=== PATIENT | female | born 1980 | race Caucasian/White ===

== ENCOUNTER → 2016-06-27 | Outpatient (CLI) | payer BC ==
[~2016-06-27] VITALS: Ht 167.6 cm; Wt 63.5 kg
[~2016-06-27] MED LIST: BIRTH CONTORL PO; GADOBUTROL 7.5 MMOL/7.5 ML (GADAVIST) VIAL IV ONE; IOHEXOL 300 MG/ML 50 ML (OMNIPAQUE 300) VIAL IV ONE; KETO10TA77 PO; KETO75CA PO
[2016-06-27 11:15] VITALS: BP 120/64
--- NOTE | 2016-06-27 12:15 | Diagnostic Imaging Report ---
EXAMINATION: Fluoroscopic guided joint injection/arthrogram- right. INDICATION: Right shoulder pain, request for MR arthrogram of the shoulder is submitted. Fluoroscopy time: 16.2 CONSENT: Informed consent was obtained from the patient. The risks, benefits, potential complications and alternatives were reviewed and all questions answered to the patient's satisfaction. PROCEDURE: After sterile preparation and draping, 1% lidocaine was utilized for local anesthesia. A 22 spinal needle is introduced into the glenohumeral joint under fluoroscopic guidance. After confirmation of proper positioning with intra-articular injection of, 10 ml of 1:150 concentration of Gadavist in normal saline is injected the into the joint. The patient tolerated the procedure well with no immediate complications. FINDINGS: Arthrogram demonstrates Normal distribution of contrast in the joint with no filling of the subacromial subdeltoid bursa seen. IMPRESSION: Successful fluoroscopic guided injection of diluted gadolinium into the right shoulder . MR arthrogram to follow. Dictated by: Dictated on workstation # [id number]
--- NOTE | 2016-06-27 12:54 | Diagnostic Imaging Report ---
EXAMINATION: Multiplanar, multisequence MRI of the right shoulder performed with intra-articular contrast. INDICATION: Right shoulder pain. FINDINGS: There is no os acromiale or Hill-Sachs deformity. The acromioclavicular joint demonstrates no significant degenerative changes or osteophyte formation. The long head biceps tendon is within its groove. The subscapular tendon appears intact. The supraspinatus and infraspinatus tendons demonstrate mild bursal side T2 hyperintense signal along the distal tendon suggestive of low-grade partial tear best seen on T2 weighted fat-sat oblique coronal images. No high-grade or retracted tear. The glenoid labrum demonstrates mild fraying of the undersurface of the superior labrum at the biceps anchor level. No displaced or full-thickness tear is seen. This is best seen on oblique coronal image 8. The bone marrow signal is within normal limits. There is no abnormal filling of the subacromial subdeltoid bursa with contrast which normally distends the glenohumeral joint. The muscle bulk and signal around the shoulder is normal. IMPRESSION: 1. There is a suggestion of distal supraspinatus and infraspinatus tendons bursal side low-grade partial tear. 2. Mild fraying of the undersurface of the superior labrum at the biceps anchor level with no full-thickness tear demonstrated. Dictated by: Dictated on workstation # [id number]
== END ==
LOC: RAD 10:34
PROVIDERS: ATTEND Orthopaedic Surgery
DX: S43.431A Superior glenoid labrum lesion of right shoulder, initial encounter (principal)
CPT/HCPCS: 23350; 73040; 73222

== ENCOUNTER → 2018-02-21 | Outpatient (CLI) | payer BC ==
[~2018-02-21] MED LIST changes: -GADOBUTROL 7.5 MMOL/7.5 ML (GADAVIST) VIAL IV ONE; -IOHEXOL 300 MG/ML 50 ML (OMNIPAQUE 300) VIAL IV ONE
== END ==
LOC: CARD 12:53
PROVIDERS: ATTEND Internal Medicine Cardiovascular Disease
DX: I47.1 Supraventricular tachycardia (principal); R00.1 Bradycardia, unspecified; R42 Dizziness and giddiness; N20.0 Calculus of kidney; I07.1 Rheumatic tricuspid insufficiency
CPT/HCPCS: 93306

== ENCOUNTER 2018-02-23 08:58 | Outpatient (RCR) | payer BC | END 2018-05-24 | disposition home or self-care (01) | LOC: CARD 08:58 | PROVIDERS: ATTEND Internal Medicine Cardiovascular Disease | DX: I47.1 Supraventricular tachycardia (principal); R00.1 Bradycardia, unspecified; R42 Dizziness and giddiness; N20.0 Calculus of kidney | CPT/HCPCS: 93225; 93226 ==

== ENCOUNTER → 2019-07-07 | Outpatient (CLI) | payer BC | LOC: LAB 13:06 | PROVIDERS: ATTEND Urology | DX: Z87.442 Personal history of urinary calculi (principal) | CPT/HCPCS: 36415; 82140; 82340; 82507; 82570; 83735; 83945; 83986; 84105; 84133; 84300; 84392; 84560 ==

== ENCOUNTER → 2019-12-12 | Outpatient (CLI) | payer BC ==
--- NOTE | 2019-12-12 14:01 | Diagnostic Imaging Report ---
INDICATION: Palpable lump left breast. Comparison is made with prior mammogram from 03/04/2015 and 02/01/2011. 2-D and 3-D bilateral diagnostic mammography was performed with CAD. BB markers were placed at the areas of palpable abnormality in the upper and outer left breast. Both breasts show marked frontal heterogeneity and increased density, limiting the sensitivity of mammography. There appears to be a circumscribed density just deep to the BB marker in the upper outer left breast, likely a cyst. There are circumscribed densities in the medial and lateral aspect of the right breast on the CC view at posterior depth, likely cysts. There is also circumscribed density near the chest wall of the right breast at the nipple line on MLO view. This likely represents a cyst as well. No suspicious microcalcifications are seen. IMPRESSION: BI-RADS 0 Bilateral symmetric densities, likely cysts. Further evaluation with ultrasound is recommended and will be performed today. ACR BI-RADS Category 0: Incomplete. (Needs additional imaging evaluation). Result letter will be mailed to the patient. Note: At least 10% of breast cancer is not imaged by mammography. Dictated by: Dictated on workstation # [id number]
--- NOTE | 2019-12-12 15:48 | Diagnostic Imaging Report ---
INDICATION: Breast lumps and breast densities. COMPARISON: Correlation is made with diagnostic mammogram from earlier the same day. FINDINGS: There is a large cyst at the 1:00 location of the left breast, 7 cm from the nipple, measuring 2.0 x 1.3 x 1.8 cm. This likely accounts for the palpable abnormality. There is also a small cyst at the 3:00 location of the left breast. Numerous cysts in the right breast are noted. Cysts at the 9:00 location, 7-9 cm from the nipple are noted, largest measuring 1.9 x 0.9 x 1.4 cm. 2nd cyst adjacent to this measures 1.4 x 1.0 x 1.3 cm. A cluster of cysts versus septated cysts at the 10:00 location 3-5 cm from the nipple are noted, measuring 1.6 x 1.1 x 1.7 cm. 2nd cyst 2:00 o'clock location, 2 cm from the nipple is noted, measuring 1.8 x 0.8 x 1.7 cm. IMPRESSION: Multiple bilateral breast cysts. Cysts at the 1:00 location in the left breast, 7 cm from the nipple, accounts for the palpable abnormality. There is a complex cyst in the right breast at the 10:00 location. Patient may return to routine annual screening mammography. ACR BI-RADS Category 2: Benign findings. Result letter will be mailed to the patient. Note: At least 10% of breast cancer is not imaged by mammography. Dictated by: Dictated on workstation # [id number]
== END ==
LOC: RAD 13:45
PROVIDERS: ATTEND Family Medicine
DX: N60.01 Solitary cyst of right breast (principal); N60.02 Solitary cyst of left breast; N63.20 Unspecified lump in the left breast, unspecified quadrant
CPT/HCPCS: 76642; 77066; G0279; 77062

== ENCOUNTER → 2022-01-17 | Outpatient (CLI) | payer BC, OTHER | LOC: CARD 09:00 | PROVIDERS: ATTEND Physician Assistant | DX: R00.2 Palpitations (principal); I10 Essential (primary) hypertension | CPT/HCPCS: 93306 ==

== ENCOUNTER → 2022-03-09 | Outpatient (CLI) | payer OTHER ==
[2022-03-09 14:04] VITALS: BP 118/69
--- NOTE | 2022-03-09 17:37 | Cardiology Stress Test Report ---
Stress Test Report Date of Procedure/Referring: Date of Procedure: Mar 09, 2022 PCP Mary Baumann MD Admitting Physician Admitting Physician: Attending Physician: Paula Ayers Indications: CP Baseline Heart Rate: 71 Baseline Blood Pressure: Blood Pressure Systolic: 118 Blood Pressure Diastolic: 69 Baseline EKG: Baseline EKG: NSR Summary/Conclusion: Summary: In summary, the patient started exercising with a baseline heart rate, blood pressure and EKG mentioned above Patient was able to exercise for a total of 13 minutes on Jose protocol, METs 13.5 Maximum heart rate 159 Maximum blood pressure 141/48 Stress EKG, Minimal nondiagnostic changes Recovery EKG , Return to baseline Conclusion: 1. Good exercise tolerance for a total of 13 minutes on Jose protocol, 13.5 METs, achieving 88 percent of maximum expected heart rate 2. Minimal nondiagnostic EKG changes with exercise returned to baseline during recovery 3. No arrhythmia was noted Copy Copies To 1: [facility] MD Mar 09, 2022 17:37
== END ==
LOC: CARD 14:00
PROVIDERS: ATTEND Physician Assistant
DX: R07.9 Chest pain, unspecified (principal); R00.2 Palpitations
CPT/HCPCS: 93017

== ENCOUNTER → 2022-11-23 | Outpatient (CLI) | payer OTHER ==
--- NOTE | 2022-11-23 14:06 | Diagnostic Imaging Report ---
EXAMINATION: Magnetic resonance imaging of the right shoulder without contrast. DATE: November 23, 2022. COMPARISON: MRI right shoulder June 27, 2016. HISTORY: 42-year-old female, fall. Right shoulder pain after injury. TECHNIQUE: Magnetic Resonance Imaging sequences were performed of the shoulder without contrast. FINDINGS: ROTATOR CUFF, LIGAMENTS, TENDONS, AND MUSCLES: There is a 5 mm wide approximately 25% partial thickness articular sided tear of supraspinatus best demonstrated on sagittal PD fat saturation sequence image 4 and coronal T2 fat saturation sequence image 9. The infraspinatus and teres minor tendons are intact. The subscapularis tendon is intact. There is normal rotator cuff muscle bulk and signal. LONG HEAD OF BICEPS: The proximal long head of the biceps tendon is not well seen in the included [id number]. There is susceptibility artifact at the level of the proximal humeral diaphysis which may reflect prior biceps tenodesis. Recommend correlation with past surgical history. GLENOHUMERAL JOINT: The humeral head is well positioned relative to the glenoid. The labrum is grossly intact. There is no identified paralabral cyst. The articular cartilage is grossly intact. There is no joint effusion. ACROMIOCLAVICULAR JOINT: The acromioclavicular joint is normally aligned. The coracoclavicular and coracoacromial ligaments are intact. There are no degenerative changes of the acromioclavicular joint. BONE: The bones all have normal configuration. The bone marrow signal is within normal limits. Specifically, negative for fracture, osteomyelitis, osteonecrosis, or marrow replacing process. BURSAE AND SOFT TISSUES: The bursae and soft tissue surrounding the shoulder are unremarkable. IMPRESSION: 1. 5 mm wide approximately 25% partial thickness articular sided tear of supraspinatus. No fatty muscle atrophy. 2. Intact acromioclavicular joint. 3. Grossly intact labrum and unremarkable additional glenohumeral joint assessment. 4. Probable findings of biceps tenodesis with suspected anchor at the level of the proximal humeral diaphysis. Recommend correlation with past surgical history. 5. No acute fracture, bone contusion, or other notable bone marrow signal abnormality. Dictated by: Dictated on workstation # [id number]
== END ==
LOC: RAD 13:15
PROVIDERS: ATTEND Pediatrics
DX: S46.011A Strain of muscle(s) and tendon(s) of the rotator cuff of right shoulder, initial encounter (principal); W19.XXXA Unspecified fall, initial encounter
CPT/HCPCS: 73221